=== PATIENT | male | born 1950 | race Caucasian/White ===

== ENCOUNTER 2017-03-20 04:07 | Inpatient (IN) | payer MEDICAID ==
[~2017-03-20] VITALS: Ht 177.8 cm; Wt 82.6 kg
[2017-03-20 04:07] VITALS: BP_SYST 148
[2017-03-20] MEDS ORDERED: LISI10TA5 PO (04:25)
[2017-03-20] MEDS ORDERED: ASPI81TA2 PO (04:26)
[2017-03-20] MEDS ORDERED: GLIP5TAB13 PO (04:27)
[2017-03-20] MEDS ORDERED: OMEP20CA10 PO (04:28)
[2017-03-20] MEDS ORDERED: LISI-209 PO (04:28)
[2017-03-20] MEDS ORDERED: AMI200 PO (04:29)
[2017-03-20] MEDS ORDERED: FURO-150 PO (04:30)
[2017-03-20] MEDS ORDERED: NITROGLYCERIN 0.4 MG TAB.SUBL SL ONE (04:30)
[2017-03-20] MEDS ORDERED: ASPIRIN 81 MG TAB.CHEW PO ONE (04:30)
[2017-03-20 04:31] LABS: HEMATOCRIT 32.5 % (36-54); MEAN CORPUSCULAR HEMOGLOBIN 32 pg (27-31); MEAN CORPUSCULAR HGB CONC 34 % (32-36); MEAN CORPUSCULAR VOLUME 94 fL (79.0-98.0); PLATELET COUNT (AUTO) 254 K/uL (130-430); RED BLOOD CELL COUNT(AUTO) 3.45 MIL/uL (4.2-6.2); RED CELL DISTRIBUTION WIDTH 13.4 % (9.0-15.0); WHITE BLOOD COUNT (AUTO) 17.2 K/uL (4.8-10.8)
[2017-03-20] MEDS ORDERED: HYDR-1189 PO (04:31)
[2017-03-20] MEDS ORDERED: LIP80 PO (04:32)
[2017-03-20] MEDS ORDERED: DOCU-144 PO (04:33)
[2017-03-20] MEDS ORDERED: GLUXR500 PO ×2 (04:36→04:37)
[2017-03-20] MEDS ORDERED: COR6.25 PO (04:38)
[2017-03-20 04:42] LABS: CALCIUM 9.4 mg/dL (8.4-11.0); CREATININE 1.83 mg/dL (0.55-1.30); POTASSIUM 3.8 mmol/L (3.5-5.1)
[2017-03-20 04:44] LABS: PROTHROMBIN TIME 10.9 SECS (9.5-12.5)
[2017-03-20 04:46] LABS: BASOPHILS % (MANUAL) 0 % (0-2); EOSINOPHILS % (MANUAL) 2 % (0-7); LYMPHOCYTES % (MANUAL) 17 % (20-46); MONOCYTES % (MANUAL) 6 % (0-11)
[2017-03-20 04:47] LABS: ALBUMIN 3.1 g/dL (3.4-4.8); TOTAL BILIRUBIN 0.6 mg/dL (0.0-1.0)
[2017-03-20] MEDS ORDERED: HYDROcodone/ACETAMIN 5-325 MG TAB (NORCO/ VICODIN) PO PRN (05:45)
[2017-03-20 05:46] VITALS: BP_SYST 121
[2017-03-20 08:31] VITALS: BP_SYST 103
[2017-03-20] MEDS ORDERED: LISINOPRIL 10 MG TABLET (PRINIVIL) PO SCH (09:00)
[2017-03-20] MEDS ORDERED: ATORVASTATIN 20 MG TABLET PO SCH (09:00)
[2017-03-20] MEDS ORDERED: OMEPRAZOLE 20 MG CAPSULE.DR (PriLOSEC) PO SCH (09:00)
[2017-03-20] MEDS ORDERED: AMIODARONE HCL 200 MG TABLET PO SCH (09:00)
[2017-03-20] MEDS: DOCUSATE SODIUM 100 MG CAPSULE PO SCH ×2 (09:00→10:15)
[2017-03-20] MEDS ORDERED: FUROSEMIDE 20 MG TABLET PO SCH (09:00)
[2017-03-20] MEDS ORDERED: CARVEDILOL 6.25 MG TABLET (COREG) PO SCH (09:00)
[2017-03-20] MEDS ORDERED: ASPIRIN 81 MG TAB.CHEW PO SCH (09:00)
[2017-03-20] MEDS: INSULIN REGULAR, HUMAN 100 UNITS/ML, 10 ML VIAL (novoLIN R) SUBCUT PRN ×2 (12:36→17:26)
[2017-03-20 12:41] VITALS: BP_SYST 124
[2017-03-20 16:49] VITALS: BP_SYST 106
[2017-03-20] MEDS ORDERED: LISINOPRIL 5 MG TABLET PO SCH (18:00)
== END 2017-03-20 18:55 | disposition left against medical advice (07) | DRG 198 ==
LOC: SED 04:07 → STU 05:29
PROVIDERS: ADMIT Internal Medicine; ATTEND Internal Medicine
DX: I25.119 Atherosclerotic heart disease of native coronary artery with unspecified angina pectoris (principal); E11.51 Type 2 diabetes mellitus with diabetic peripheral angiopathy without gangrene; I10 Essential (primary) hypertension; E78.5 Hyperlipidemia, unspecified; Z53.21 Procedure and treatment not carried out due to patient leaving prior to being seen by health care provider; D64.9 Anemia, unspecified; Z95.1 Presence of aortocoronary bypass graft; Z79.82 Long term (current) use of aspirin; Z79.899 Other long term (current) drug therapy
CPT/HCPCS: 36415; 71010; 80053; 82962; 84484; 85007; 85027; 85610-TC; 85730-TC; 87081; 93005; 99285; J1815